=== PATIENT | female | born 1940 | race Caucasian/White ===

== ENCOUNTER 2019-12-25 17:35 | Emergency (ER) | payer MEDICARE, SELFPAY ==
[2019-12-25] VITALS (14 sets, daily range): BP systolic 139–166; BP diastolic 91–117; PULSE 86–111; RESP 15–25; TEMP 36.4; O2SAT 97
--- NOTE | 2019-12-25 18:17 | PC.NURSE ---
Pt states she has blood in the toilet but is unsure if it is from vagina or rectal area. Pt states she takes xarelto and does not know if that is causing the bleeding. Pt sister had bleeding issues after being on xarelto and had to be taken off medications.
[2019-12-25 18:40] LABS: Basophils Absolute Auto 0.1 K/mm3 (0.0-0.1); Basophils Percent Auto 0.6 % (0.2-1.2); Eosinophils Absolute Auto 0.1 K/mm3 (0-0.3); Eosinophils Percent Auto 1.3 % (0-4.4); Hematocrit 38.5 % (37.0-47.0); Hemoglobin 12.7 g/dL (12.0-15.0); Immature Granulocyte Absolute 0.04 K/mm3 (0.00-0.031); Immature Granulocyte Percent A 0.5 % (0-0.5); Lymphocytes Absolute Auto 2.44 K/mm3 (0.9-3.2); Lymphocytes Percent Auto 30.7 % (18.3-44.2); Mean Corpuscular Volume 90.8 fl (80-100); Mean Platelet Volume 10.9 fl (7.4-10.4); Monocytes Absolute Auto 0.8 K/mm3 (0.1-0.6); Monocytes Percent Auto 10.1 % (2.6-8.5); Neutrophils Absolute Auto 4.5 K/mm3 (1.3-6.7); Neutrophils Percent Auto 56.8 % (45.5-73.1); Platelet Count Result 140 k/mm3 (150-375); Red Blood Count 4.24 M/mm3 (4.2-5.4); Red Cell Distribution Width 13.7 % (11.5-14.5)
[2019-12-25 18:48] LABS: INR 2.2; Prothrombin Time 23.7 Seconds (11.1-14.7)
[2019-12-25 18:49] LABS: Partial Thromboplastin Time 26.9 SECONDS (22.3-36.8)
[2019-12-25 18:50] LABS: Alanine Aminotransferase 16 U/L (4-35); Albumin Level 3.8 g/dL (3.5-5.1); Alkaline Phosphatase 65 U/L (38-126); Aspartate Amino Transferase 35 U/L (14-36); Bilirubin,Total 1.1 mg/dL (0.2-1.3); Blood Urea Nitrogen 20 mg/dL (7-17); Calcium 8.9 mg/dL (8.4-10.2); Carbon Dioxide 24 mmol/L (22-30); Chloride 107 mmol/L (98-107); Estimated CRCL calculation 36 ml/min; Estimated Glomerular Filt Rate 53; Glucose 84 mg/dL (65-105); Potassium 3.7 mmol/L (3.4-5.0); Sodium 137 mmol/L (137-145)
--- NOTE | 2019-12-25 19:28 | ED.FEMALEGU ---
HPI - Female Genitourinary General Chief complaint: Urogenital-Female Stated complaint: rectal bleeding Time Seen by Provider: 12/25/19 19:03 History of Present Illness HPI Narrative: Blood in her urine for the past few days. Associated with urinary frequency. She is on xarelto. No other bleeding or bruising. No fever. Related Data Allergies Allergy/AdvReac Type Severity Reaction Status Date / Time Penicillins Allergy Unknown Verified 04/09/14 14:39 Review of Systems Review of Systems: All systems reviewed & are unremarkable except as noted in HPI and below Constitutional: Constitutional: Denies chills ENT: Denies dizziness Cardiovascular: Cardiovascular: Denies chest pain Respiratory: Respiratory: Denies dyspnea Gastrointestinal: Gastrointestinal: Denies nausea and Denies vomiting Genitourinary: Genitourinary: Reports hematuria, Denies pelvic pain and Denies vaginal discharge Neurologic: Denies dizziness and Denies weakness [facility] Past Medical History Medical History (Updated 12/26/19 @ 02:55 by Cameron Mendez MD) Atrial fibrillation CVA (cerebral vascular accident) Family History Family History Other Family history of heart disease in male family member before age 55 Social History Social History Smoking status: Never smoker Alcohol intake: never Exam Const: General: healthy appearing, no acute distress and alert Orientation/consciousness: patient oriented x3 HENMT: Head: normal to inspection Resp: Effort & Inspection: normal respiratory effort Auscultation: clear to auscultation bilaterally Cardio: Rate: regular rate Rhythm: abnormal rhythm irregularly irregular GI: GI Palp: Yes Soft to palpation and No Tenderness to palpation present (GI) Skin: General skin exam: normal color Rashes: no rashes Neuro: General: patient oriented x3, moves all extremities and CN's II-XI intact bilaterally Speech: normal speech Extrem: General: normal to inspection Course Vital Signs Vital signs: Vital Signs Temperature 36.4 C 12/25/19 17:57 Pulse Rate 92 12/25/19 17:57 Respiratory Rate 18 12/25/19 17:57 Blood Pressure 152/103 H 12/25/19 17:57 Pulse Oximetry 97 12/25/19 17:57 Temperature 36.4 C 12/25/19 17:57 Pulse Rate 111 H 12/25/19 20:06 Respiratory Rate 24 H 12/25/19 20:06 Blood Pressure 139/94 H 12/25/19 19:51 Pulse Oximetry 97 12/25/19 17:57 MDM - Female Genitourinary MDM Narrative Medical decision making narrative: only a few RBCs in urine. No sign of infection. Likely related to xarelto. Differential Diagnosis Differential diagnosis: Likely urinary tract infection and cystitis Medical Records Attestation: I reviewed the patient's medical records. Lab Data Attestation: I reviewed the patient's lab results. Result diagrams: 12/25/19 18:33 12/25/19 18:33 Labs: Lab Results 12/25/19 12/25/19 12/25/19 Range/Units 18:33 18:33 18:33 WBC 8.0 (4.5-10.0) K/mm3 RBC 4.24 (4.2-5.4) M/mm3 Hgb 12.7 (12.0-15.0) g/dL Hct 38.5 (37.0-47.0) % MCV 90.8 (80-100) fl MCH 30.0 (26-34) pg MCHC 33.0 (32-36) g/dl RDW 13.7 (11.5-14.5) % Plt Count 140 L (150-375) k/mm3 MPV 10.9 H (7.4-10.4) fl Immature Gran % (Auto) 0.5 (0-0.5) % Neut % (Auto) 56.8 (45.5-73.1) % Lymph % (Auto) 30.7 (18.3-44.2) % Wayne % (Auto) 10.1 H (2.6-8.5) % Eos % (Auto) 1.3 (0-4.4) % Baso % (Auto) 0.6 (0.2-1.2) % Lymph # (Auto) 2.44 (0.9-3.2) K/mm3 Wayne # (Auto) 0.8 H (0.1-0.6) K/mm3 Eos # (Auto) 0.1 (0-0.3) K/mm3 Baso # (Auto) 0.1 (0.0-0.1) K/mm3 Abs Immat Gran (auto) 0.04 H (0.00-0.031) K/mm3 Absolute Neuts (auto) 4.5 (1.3-6.7) K/mm3 Absolute Nucleated RBC 0.0 (0.0-0.012) K/mm3 Nucleated RBC % 0.0 (0.0-0.2) % % Immature Plt F
[2019-12-25 20:20] LABS: Add Urine Microscopic? YES; Appearance Urine Cloudy (Clear); Bacteria Urine Trace /hpf; Bilirubin Urine Negative (Negative); Blood Urine 2+ (Negative); Color Urine Yellow (Yellow); Glucose Urine UA Negative (Negative); Ketones Urine Negative (Negative); Leukocyte Esterase Ur Negative LEU/UL (Negative); Mucus Urine Rare /lpf; Nitrate Urine Negative (Negative); Protein Urine Negative (Negative); Specific Grav Ur 1.014 (1.001-1.035); Squamous Epithelial Cell Urine Few /hpf (Few); Urobilinogen Urine Negative mg/dL (<2.0); WBC Urine 0-3 /hpf
== END 2019-12-25 22:04 | disposition home or self-care (01) ==
PROVIDERS: Physician Assistant; Emergency Provider Emergency Medicine; PCP Family Medicine
DX: R31.29 Other microscopic hematuria (principal); I48.91 Unspecified atrial fibrillation; Z86.73 Personal history of transient ischemic attack (TIA), and cerebral infarction without residual deficits
CPT/HCPCS: 36415; 51701; 80053; 81001; 85025; 85055; 85610; 85730; 86850; 86900; 86901; 99283

== ENCOUNTER 2020-10-11 09:06 | Outpatient (CLI) | payer MEDICARE, SELFPAY | END 2020-10-11 09:07 | disposition home or self-care (01) | LOC: ANHCOVIDVC 09:06 | PROVIDERS: PCP Family Medicine | DX: Z23 Encounter for immunization (principal) | CPT/HCPCS: 0001A; 91300 ==

== ENCOUNTER 2020-11-01 09:04 | Outpatient (CLI) | payer MEDICARE, SELFPAY | END 2020-11-01 09:05 | disposition home or self-care (01) | LOC: ANHCOVIDVC 09:04 | PROVIDERS: PCP Family Medicine | DX: Z23 Encounter for immunization (principal) | CPT/HCPCS: 0002A; 91300 ==

== ENCOUNTER 2021-09-06 16:32 | Inpatient (IN) | payer MEDICARE, SELFPAY ==
[2021-09-06] VITALS (49 sets, daily range): BP systolic 68–146; BP diastolic 45–94; PULSE 75–109; RESP 13–28; TEMP 36.8–38.1; O2SAT 92–100
--- NOTE | ~2021-09-06 | CT_ITS ---
EXAMINATION: CT abdomen pelvis w con EXAM DATE: 09/06/2021 19:13 INDICATION: Altered mental status. Nausea and vomiting. TECHNIQUE: Spiral CT of the abdomen and pelvis was performed following intravenous injection of 100 m L Omnipaque 350. Axial, coronal and sagittal images of the abdomen and pelvis were reviewed. The do se-length product (DLP) for this examination was 988.50 mGy-cm. The exposure was tailored according to patient size (auto mA exposure control), and iterative reconstruction (ASIR) was used as additiona l dose reduction technique. There is no prior study for comparison. FINDINGS: The liver, spleen, adrenal glands and pancreas are unremarkable. Gallbladder not identifie d, patient likely has had cholecystectomy. Portal and splenic veins are patent. Kidneys enhance sym metrically. There is no hydronephrosis. The uterus is unremarkable. The bladder is unremarkable. There is no retroperitoneal or pelvic lymphadenopathy. The appendix is normal. Small gastroesophageal hiatal hernia. There is expected amount of colonic s tool. No free intraperitoneal gas. There is cardiomegaly. The lung bases are unremarkable. Mild to moderate compression fracture superior endplate of L3. Probably chronic. IMPRESSION: 1. No acute intra-abdominal findings. 2. Small gastroesophageal hiatal hernia. 3. Cardiomegaly. Reviewed, dictated and finalized at location G. TECHNICIAN
--- NOTE | ~2021-09-06 | XR_ITS ---
XR chest 1V portable 09/07/2021 11:03 Indication: New wheezing and fever Procedure: AP portable chest Comparison: Comparison to multiple prior studies sequentially, with oldest reviewed study dated 06/02. Findings: Cardiomegaly. No focal air space disease, pulmonary edema, pleural effusion or suspected pn eumothorax. No acute osseous abnormality. There is curvilinear ossification superior to the humeral h ead on the right, likely calcific tendinopathy. Impression: 1: No acute cardiopulmonary disease. Reviewed, dictated and finalized at location A. AGE WINDING MACHINE OPERATOR Impression: 1: No acute cardiopulmonary disease.
--- NOTE | ~2021-09-06 | XR_ITS ---
MODIFIED ESOPHAGRAM HISTORY: Dementia. Abnormal lung exam. Fever. TECHNIQUE: Modified barium esophagram was performed on 09/08/2021. I administered fluoroscopy and perfo rmed the exam with speech pathologist. Patient was seated for lateral fluoroscopic imaging for inges tion of thin liquids, pudding, solids and quantified amounts, followed by thin liquids in uncontrolle d amounts. This was recorded on tape. A single fluoroscopic spot image was also recorded. The DAP for this procedure was 2.217 Gycm2. The amount of fluoroscopy time used during this procedure was 2.4 mi nutes. FINDINGS: Oral stage: Adequate function. Pharyngeal stage: Flash laryngeal penetration with thin liquids without aspiration. Cervical/esophageal stage: Adequate function. IMPRESSION: Flash laryngeal penetration with thin liquids without aspiration. Please correlate with speech pathologist findings and specific feeding recommendations. Reviewed, dictated and finalized at location A. [employer] IMPRESSION: Flash laryngeal penetration with thin liquids without aspiration. Please correlate with speech pathologist findings and specific feeding recommen dations.
--- NOTE | ~2021-09-06 | CT_ITS ---
EXAMINATION: CT brain wo con EXAM DATE: 09/06/2021 19:13 INDICATION: Altered mental status. TECHNIQUE: Spiral CT of the head was performed without contrast. Axial, coronal and sagittal images were reviewed. The dose-length product (DLP) for this examination was 988.50 mGy-cm. The exposure w as tailored according to patient size, and iterative reconstruction (ASIR) was used as additional dos e reduction technique. Comparison is made to prior examination from 12/07/2018. FINDINGS: There is no acute intraparenchymal hemorrhage. No evidence of intraparenchymal brain mass lesion. No evidence of acute infarction. Please note that initial head CT has limited sensitivity f or small or acute infarctions. There is moderate periventricular and subcortical hypodensity, nonspec ific but probably related to small vessel ischemic disease. There is moderate prominence of the sul ci and ventricles related to cerebral atrophy. There is intracranial carotid arteriosclerosis. The re are no extra-axial collections. There is no mass effect or midline shift. The orbits are unremar kable. Soft tissue is unremarkable. The visualized sinuses and mastoid air cells are well aerated. IMPRESSION: 1. No acute intracranial findings. 2. Chronic age related findings. Reviewed, dictated and finalized at location G. WORKER
--- NOTE | ~2021-09-06 | XR_ITS ---
EXAMINATION: XR chest 1V portable DATE: 09/10/2021 09:03 INDICATION: Shortness of breath and wheezing TECHNIQUE: frontal view of the chest was obtained. COMPARISON: Chest radiograph dated 09/07/2021 FINDINGS: Subtle opacities in the bilateral lower lung zones. No pneumothorax or definitive pleural effusion. C ardiomegaly. IMPRESSION: 1. Subtle opacities in the lower lung zones which could represent atelectasis, mild pulmonary edema o r pneumonia. 2. Cardiomegaly. Reviewed, dictated and finalized at location A. EED HARVESTER IMPRESSION: 1. Subtle opacities in the lower lung zones which could represent atelectasis, mild pulmonary edema or pneumonia. 2. Cardiomegaly.
--- NOTE | ~2021-09-06 | MR_ITS ---
EXAMINATION: MR brain/brain stem wo con EXAM DATE: 09/10/2021 12:24 INDICATION: confusion h/o cva . TECHNIQUE: Magnetic resonance imaging (MRI) of the brain/brain stem obtained without contrast. Sagitt al T1, axial diffusion, gradient echo (T2*), T1, T2, FLAIR sequences obtained. Comparison is made to prior examination from 12/08/2018. FINDINGS: There are no areas of restricted diffusion to suggest acute infarction. There is no acute hemorrhage seen on the T2*, a hemosiderin sensitive sequence. No intraparenchymal brain mass lesion. There is moderate periventricular and subcortical T2/FLAIR signal hyperintensity, nonspecific but pr obably related to small vessel ischemic disease (microangiopathy). There is moderate prominence of the sulci and ventricles related to cerebral atrophy. There are no extra-axial collections. Flow v oids are seen in the cerebral arteries on the T2-weighted sequences consistent with their expected pa tency. The orbits are unremarkable. Soft tissue is unremarkable. IMPRESSION: 1. No acute intracranial findings. 2. Chronic age related findings. Reviewed, dictated and finalized at location B. DATA ENGINEER
--- NOTE | ~2021-09-06 | XR_ITS ---
EXAMINATION: XR chest 1V portable EXAM DATE: 09/06/2021 20:46 INDICATION: AMS, wheeze, covid pending, HX CVA, HX AFIB TECHNIQUE: Portable AP frontal chest x-ray was obtained. Comparison is made to prior examination from 12/07/2018. FINDINGS: The lungs are clear. There are no pleural effusions. Mild cardiomegaly. There is no pneu mothorax suspected. The bones are osteopenic. There are bony degenerative changes. IMPRESSION: Mild cardiomegaly. Reviewed, dictated and finalized at location G. L OPERATOR IMPRESSION: Mild cardiomegaly.
--- NOTE | 2021-09-06 17:43 | ECG_ITS ---
Measurements Intervals [place] Rate: 114 P: MA: 0 QRS: 54 QRSD: 84 T: -40 QT: 354 QTc: 489 Interpretive Statements ATRIAL FIBRILLATION WITH RAPID VENTRICULAR RESPONSE NONSPECIFIC ST & T-WAVE ABNORMALITY- ANTEROLAT/INF LEADS BASELINE ARTIFACT- I, II, III, AVR, AVL, AVF ABNORMAL ECG Electronically Signed On 09-06-2021 18:15:23 CHECK WRITING MACHINE OPERATOR by Juvencio Hackett D.O.
[2021-09-06] MEDS: ONDANSETRON INJ 4 MG/2 ML VIAL IV PUSH (17:56)
[2021-09-06] MEDS: SODIUM CHLORIDE 0.9% IV 1,000 ML 999 ML IV CONT ×2 (17:56→22:36)
[2021-09-06 18:03] LABS: Basophils Percent Auto 0.3 % (0.2-1.2); Hematocrit 43.9 % (37.0-47.0); Hemoglobin 14.1 g/dL (12.0-15.0); Immature Granulocyte Absolute 0.08 K/mm3 (0.00-0.031); Immature Granulocyte Percent A 0.9 % (0-0.5); Lymphocytes Absolute Auto 0.31 K/mm3 (0.9-3.2); Lymphocytes Percent Auto 3.4 % (18.3-44.2); Mean Corpuscular HGB Conc 32.1 g/dl (32-36); Mean Corpuscular Hemoglobin 31.1 pg (26-34); Mean Corpuscular Volume 96.7 fl (80-100); Mean Platelet Volume 10.8 fl (7.4-10.4); Monocytes Absolute Auto 0.8 K/mm3 (0.1-0.6); Monocytes Percent Auto 8.6 % (2.6-8.5); Neutrophils Percent Auto 86.8 % (45.5-73.1); Platelet Count Result 124 k/mm3 (150-375); Red Blood Count 4.54 M/mm3 (4.2-5.4); Red Cell Distribution Width 13.7 % (11.5-14.5); White Blood Count 9.2 K/mm3 (4.5-10.0)
[2021-09-06 18:35] LABS: Add Urine Microscopic? YES; Appearance Urine Clear (Clear); Bilirubin Urine Negative (Negative); Blood Urine 3+ (Negative); Color Urine Yellow (Yellow); Glucose Urine UA Negative (Negative); Ketones Urine Negative (Negative); Leukocyte Esterase Ur Negative LEU/UL (Negative); Mucus Urine Rare /lpf; Nitrate Urine Negative (Negative); Protein Urine Negative (Negative); RBC Urine 21-50 /hpf (0-2); Squamous Epithelial Cell Urine Occasional /hpf (Few); Urobilinogen Urine Negative mg/dL (<2.0); WBC Urine 0-3 /hpf
[2021-09-06 18:36] LABS: Alanine Aminotransferase 27 U/L (4-35); Albumin Level 3.8 g/dL (3.5-5.1); Alkaline Phosphatase 81 U/L (38-126); Anion Gap 3 mmol/L (8-16); Aspartate Amino Transferase 38 U/L (14-36); Bilirubin,Total 1.6 mg/dL (0.2-1.3); Blood Urea Nitrogen 19 mg/dL (7-17); Calcium 8.9 mg/dL (8.4-10.2); Carbon Dioxide 30 mmol/L (22-30); Chloride 104 mmol/L (98-107); Estimated CRCL calculation 47 ml/min; Estimated Glomerular Filt Rate 60; Glucose 131 mg/dL (65-110); Lipase 40 U/L (23-300); Potassium 4.2 mmol/L (3.4-5.0); Sodium 137 mmol/L (137-145)
--- NOTE | 2021-09-06 18:38 | PC.NURSE ---
Talked to Mey in lab at 18:38 to add on Urine Drug Screen to urine cup in lab.
--- NOTE | 2021-09-06 18:41 | ED.NAVMDI ---
HPI - Nausea/Vomiting/Diarrhea General Chief complaint: Nausea/Vomiting/Diarrhea <Jeremy Mercedes MD - Last Filed: 09/06/21 19:19> Stated complaint: altered mental status <Jeremy Mercedes MD - Last Filed: 09/06/21 19:19> Time Seen by Provider: 09/06/21 17:33 <Jeremy Mercedes MD - Last Filed: 09/06/21 19:19> Source: family, EMS, RN notes reviewed and old records reviewed <Jeremy Mercedes MD - Last Filed: 09/06/21 19:19> History of Present Illness HPI Narrative: Patient presents for confusion. Patient was in her usual state of health yesterday at her baseline dementia usually is alert to her self and able to care for self. Patient has relatives in the area sickly her aunt who checks in on her from time to time. This morning and noted the patient was more confused than usual her confusion progressed throughout the day and she also had multiple episodes of vomiting is not been able to keep down her medications. Given persistence of her symptoms EMS was called and patient was brought to the ER for evaluation. <Jeremy Mercedes MD - Last Filed: 09/06/21 19:19> Related Data Home medications: Home Medications Medication Instructions Recorded Confirmed atorvastatin 20 mg 09/06/21 carvedilol 3.125 mg 09/06/21 furosemide 20 mg 09/06/21 levothyroxine 50 mcg 09/06/21 losartan 25 mg 09/06/21 memantine 5 mg 09/06/21 rivaroxaban [Xarelto] 15 mg 09/06/21 <Jeremy Mercedes MD - Last Filed: 09/06/21 19:19> Allergies/Adverse reactions: Allergies Allergy/AdvReac Type Severity Reaction Status Date / Time Penicillins Allergy Unknown Unknown Verified 09/06/21 17:40 <Jeremy Mercedes MD - Last Filed: 09/06/21 19:19> Review of Systems Review of Systems: CONSTITUTIONAL: Denies fever, chills, or sweats. EYES: Denies visual changes, redness, or discharge. ENT: Denies rhinorrhea, congestion, sore throat, or otalgia. CARDIOVASCULAR: Denies chest pain, palpitations, or edema. RESPIRATORY: Denies cough or dyspnea. GASTROINTESTINAL: Denies abdominal pain, nausea, vomiting, or diarrhea. GENITOURINARY: Denies dysuria or hematuria. SKIN: Denies rash or itching. MUSCULOSKELETAL: Denies back pain, joint pain, or myalgia. NEUROLOGIC: Denies headache, numbness, dizziness, or weakness. PSYCHIATRIC: Denies anxiety or depression. <Jeremy Mercedes MD - Last Filed: 09/06/21 19:19> All systems reviewed & are unremarkable except as noted in HPI and below <Jeremy Mercedes MD - Last Filed: 09/06/21 19:19> ROS unobtainable: Yes unobtainable due to mental status (Patient only alert to herself ROS likely limited) <Jeremy Mercedes MD - Last Filed: 09/06/21 19:19> PMFSH Past Medical History Medical History: Medical History Atrial fibrillation CVA (cerebral vascular accident) <Jeremy Mercedes MD - Last Filed: 09/06/21 19:19> Family History Family History: Family History Other Family history of heart disease in male family member before age 55 <Jeremy Mercedes MD - Last Filed: 09/06/21 19:19> Social History Social History: Social History Smoking status: Never smoker Alcohol intake: never <Jeremy Mercedes MD - Last Filed: 09/06/21 19:19> Exam Narrative: GENERAL: Well-appearing, well-nourished, and in no acute distress. HEAD: Normocephalic, atraumatic. EYES: PERRLA and EOMI. ENT: Nares clear, no rhinorrhea or epistaxis. Mucous membranes moist. NECK: Supple. No masses. No JVD CHEST: Clear to auscultation. No respiratory distress. No wheezes rales or rhonchi HEART: Regular rate and rhythm. No murmur heard. Normal peripheral pulses. ABDOMEN: Soft, nontender, nondistended, normal active bowel sounds. EXTREMITIES: Normal range of motion. No edema. SKIN: Warm, dry, no rash. NEURO: No focal deficits.
--- NOTE | 2021-09-06 18:46 | PC.NURSE ---
Called pt niece and she was able to give me some additional information. She states that pt still lives at home alone and she states that she was at her normal yesterday. She states that she normally knows her name and where she is. She states this morning that she was very weak and didn't want to eat. she states that she vomited and slept alot today. She didnt take any medications this morning. She also states that she as much more confused than normal
--- NOTE | 2021-09-06 19:03 | PC.NURSE ---
Pt Tyra reis,
[2021-09-06 19:10] LABS: Amphetamine Screen Urine Negative (Negative); Barbiturate Screen Urine Negative (Negative); Benzodiazepines Screen Urine Negative (Negative); Cannabinoid Screen Urine Negative (Negative); Cocaine Screen Urine Negative (Negative); Methadone Screen Urine Negative (Negative); Opiate Screen Urine Negative (Negative); Phencyclidine Screen Urine Negative (Negative)
[2021-09-06 19:58] LABS: Lactic Acid Reflex 1.2 mmol/L (0.7-2.1)
--- NOTE | 2021-09-06 20:19 | PC.NURSE ---
This RN spoke with granddaughter and POA, Sowmya Tijerina [phone]. This RN provided update on pt status.
--- NOTE | 2021-09-06 20:37 | PC.NURSE ---
Pt found confused upon initial assessment, she does not know her name, pt does not know birthday, she is unable to understand that she is in a hospital and does not answer back when RN asks where she is, pt only smiles when asks questions and forms unintelligible short sentences. Pt denies pain. Wheezing heard throughout lung lott, she is satting between 93-97% on RA, pt does not wear oxygen at home.
[2021-09-06] MEDS: ALBUTEROL SULFATE NEB 2.5 MG/0.5 ML INH 5 MG INHALATION (20:52)
[2021-09-06 21:11] LABS: Base Excess ABG -2.2 mEq/l (+/-2.0); Fractional Inspired Oxygen 21 %; HCO3 ABG 21.9 mEq/l (22.0-26.0); Oxygen Content ABG 18.8 %vol (16.0-22.0); Oxygen Saturation ABG 99.7 % (95.0-100.0); Oxyhemoglobin 97.9 % THb (90.0-100.0); PCO2 ABG 35.5 mmHg (35.0-45.0); PO2 ABG 308.6 mmHg (80.0-100.0); Total Hemoglobin 13.1 g/dL (12.0-18.0); pH ABG 7.408 (7.350-7.450)
[2021-09-06 21:12] LABS: Modified Allen's Test Pass; Site Drawn RIGHT RADIAL
[2021-09-06 21:13] LABS: Device ROOM AIR
[2021-09-06 21:15] LABS: SARS-CoV-2 RNA PCR Negative
--- NOTE | 2021-09-06 21:37 | PM.IMHP ---
H&P: HPI History of Present Illness Date/Time: 09/06/21 21:37 Chief Complaint: Altered mental status Narrative: This is an 80-year-old female with past medical history significant for systolic and diastolic heart failure, atrial fibrillation rate controlled anticoagulated, dementia, hypertension, patient is usually alert awake oriented x2 as per medical records. Today she was brought for evaluation to the emergency room after she was noted to be more confused than usual and had a bout of nausea and vomiting patient had been also on somnolent and sleeping more than she is used to. At the time of my visit patient was unable to give me any history when asked where she was at she said that she knew where she was at however could not tell me exactly. Family has also concerns the patient my not be able to care for herself from now on. Preliminary workup has been essentially nonrevealing. Patient has been admitted for further evaluation management and treatment. Review of Systems Review of Systems: ROS unobtainable: Yes unobtainable due to medical condition (Dementia) [facility] Past Medical History Medical History (Updated 09/07/21 @ 01:36 by Josefa Camarillo MD) Atrial fibrillation CVA (cerebral vascular accident) Family History Family History Other Family history of heart disease in male family member before age 55 Social History Social History Smoking status: Never smoker Alcohol intake: never Substance use: never Spiritual care concerns: No Meds Home Medications and Allergies Home Medications Medication Instructions Recorded Confirmed Type atorvastatin 20 mg 09/06/21 History carvedilol 3.125 mg 09/06/21 History furosemide 20 mg 09/06/21 History levothyroxine 50 mcg 09/06/21 History losartan 25 mg 09/06/21 History memantine 5 mg 09/06/21 History rivaroxaban [Xarelto] 15 mg 09/06/21 History citalopram 10 mg PO DAILY 09/07/21 09/07/21 History ergocalciferol (vitamin D2) 1,250 mcg PO WEEKLY 09/07/21 09/07/21 History Allergies Allergy/AdvReac Type Severity Reaction Status Date / Time Penicillins Allergy Unknown Unknown Verified 02/05/22 17:40 Vital Signs Vital Signs - 24 hr 09/06/21 16:33 09/06/21 16:47 09/06/21 17:02 Temperature 98.2 F Pulse Rate 108 H 98 98 Respiratory Rate 18 23 H 21 H Blood Pressure 133/88 126/94 H 113/65 Pulse Oximetry 98 98 98 09/06/21 17:16 09/06/21 17:46 09/06/21 18:16 Temperature Pulse Rate 99 96 103 H Respiratory Rate 22 H 28 H 17 Blood Pressure 117/68 126/67 112/70 Pulse Oximetry 98 97 98 09/06/21 18:31 09/06/21 19:20 09/06/21 20:52 Temperature 100.6 F H Pulse Rate 94 96 93 Respiratory Rate 25 H 22 H 27 H Blood Pressure 110/74 146/79 H Pulse Oximetry 97 97 09/06/21 21:26 Temperature 99.0 F Pulse Rate Respiratory Rate Blood Pressure Pulse Oximetry Exam Narrative: Patient is laying in [facility] Const: General: comfortable, no acute distress, well developed, well groomed and other (Sleeping, well-appearing.) Nutritional Appearance: overweight Orientation/consciousness: oriented to person and Other orientation findings (Somnolent) Limitations: altered mental status HENMT: Head: normal to inspection, normocephalic and atraumatic Ears: hearing grossly normal bilaterally General nose exam: Normal external nose present Face and sinus: normal facial exam Mouth: Yes dry mucous membranes Eyes: General: appearance normal, both eyes and all related structures Alignment and Position: alignment normal Sclera: sclerae normal Pupils: Equal, round and reactive pupils present EOM: EOMs intact bilaterally Neck: Neck: normal visual inspection, full ROM, no lymphadenopathy, supple and no JVD Thyroid: thyroid normal Lymphatic: no lymphadenopathy noted Resp: Effort & Inspection: normal respiratory effort and able to speak in com
[2021-09-06] MEDS: SODIUM CHLORIDE 0.9% IV 1,000 ML 250 ML (23:29)
--- NOTE | 2021-09-06 23:37 | PC.NURSE ---
ED MD [place] gave this RN verbal orders to change NS infusion of 250 ml/hr to 1 liter bolus @ 999 ml/hr.
--- NOTE | 2021-09-06 23:52 | PC.NURSE ---
Pt continues to be monitored while in the ED due to fluctuant BP measurements.
[2021-09-07] VITALS (18 sets, daily range): BP systolic 94–133; BP diastolic 42–90; PULSE 70–109; RESP 16–24; TEMP 36.1–37.2; O2SAT 90–100
--- NOTE | 2021-09-07 00:10 | PC.NURSE ---
Manual BP obtained by RN 100/54, notified.
--- NOTE | 2021-09-07 00:17 | PC.NURSE ---
Bladder scanned by this RN, approximately 220 ml of urine observed, pt has a dry diaper that she arrived in. notified.
--- NOTE | 2021-09-07 00:45 | ADMGEN ---
This patient, Leslie Hodges, was admitted to Medical Room 256-01. Patient/family oriented to hospital policies and general routines including ID bracelet, bed and alarms, visiting hours, pain management, procedures, bathroom and other care routines, personal items, smoking policy, room service/diet, and visiting hours. Information on how to activate the Rapid Response Team has been discussed. Patient/Family are encouraged to report perceived risks to care and to ask questions if they do not understand what they are told or what they should do.
[2021-09-07 08:04] LABS: Hemoglobin 11.7 g/dL (12.0-15.0); Mean Corpuscular HGB Conc 31.6 g/dl (32-36); Mean Corpuscular Hemoglobin 31.4 pg (26-34); Mean Corpuscular Volume 99.2 fl (80-100); Mean Platelet Volume 10.3 fl (7.4-10.4); Platelet Count Result 94 k/mm3 (150-375); Red Blood Count 3.73 M/mm3 (4.2-5.4); Red Cell Distribution Width 14.1 % (11.5-14.5); White Blood Count 4.6 K/mm3 (4.5-10.0)
[2021-09-07 08:19] LABS: Hemoglobin A1C 5.2 % (<5.7); Magnesium 1.7 mg/dL (1.6-2.3); Phosphorus 3.6 mg/dL (2.5-4.5)
[2021-09-07 08:20] LABS: Alanine Aminotransferase 22 U/L (4-35); Alkaline Phosphatase 63 U/L (38-126); Anion Gap 2 mmol/L (8-16); Aspartate Amino Transferase 31 U/L (14-36); Blood Urea Nitrogen 17 mg/dL (7-17); CRP 4.4 mg/dL (<1.0); Calcium 7.8 mg/dL (8.4-10.2); Carbon Dioxide 25 mmol/L (22-30); Chloride 111 mmol/L (98-107); Estimated CRCL calculation 52 ml/min; Estimated Glomerular Filt Rate > 60; Glucose 86 mg/dL (65-110); Potassium 3.6 mmol/L (3.4-5.0); Sodium 138 mmol/L (137-145)
[2021-09-07] MEDS: ATORVASTATIN 20 MG TABLET PO (08:50)
[2021-09-07] MEDS: LEVOTHYROXINE SODIUM 50 MCG TABLET PO (08:50)
[2021-09-07] MEDS: RIVAROXABAN 15 MG TABLET PO (08:50)
[2021-09-07] MEDS: CITALOPRAM HYDROBROMIDE 10 MG TABLET PO (08:50)
[2021-09-07] MEDS: MEMANTINE 5 MG TABLET PO ×2 (08:50→16:28)
[2021-09-07 09:11] LABS: Iron 24 ug/dL (37-170)
[2021-09-07 09:21] LABS: Percent Iron Saturation 12 % (20-50)
[2021-09-07 09:22] LABS: Folic Acid 10.3 ng/mL (2.76->20)
--- NOTE | 2021-09-07 10:45 | PM.IMPN ---
Progress Note: A&P Assessment and Plan (1) Altered mental status: Qualifiers: Altered mental status type: unspecified Qualified Code(s): R41.82 - Altered mental status, unspecified Code(s): R41.82 - Altered mental status, unspecified Status: Acute Assessment and Plan: Unclear etiology Meds reviewed CXR w/o inflitrates or effusion CT head negative for acute findings CT abdomen and pelvis negative for acute findings Given her low-grade temperature, pancytopenia, and lack of focal findings she may simply have a viral syndrome superimposed on chronic dementia. Given her pulmonary findings it is possible that she is aspirating intermittently causing her fluctuating lung exam findings and low-grade temperatures. CRP is elevated but w/o findings of GCA or PMR on exam Viral meningitis is clinically unlikely. Symptomatic care PT and OT Speech therapy for modified barium swallow (2) Adult failure to thrive: Code(s): R62.7 - Adult failure to thrive Status: Acute Assessment and Plan: Her underlying disease seems to be progressing PT and OT consulted Care coordination working on longterm placement (3) Dementia: Qualifiers: Dementia type: unspecified type Dementia behavioral disturbance: without behavioral disturbance Qualified Code(s): F03.90 - Unspecified dementia without behavioral disturbance Code(s): F03.90 - Unspecified dementia without behavioral disturbance Status: Acute Assessment and Plan: Continue Namenda (4) Atrial fibrillation: Qualifiers: Atrial fibrillation type: unspecified Qualified Code(s): I48.91 - Unspecified atrial fibrillation Code(s): I48.91 - Unspecified atrial fibrillation Status: Acute Assessment and Plan: Rate controlled and anticoagulated (5) CVA (cerebral vascular accident): Qualifiers: CVA mechanism: unspecified Qualified Code(s): I63.9 - Cerebral infarction, unspecified Code(s): I63.9 - Cerebral infarction, unspecified Status: Acute Assessment and Plan: Chronic Continue statin Subjective Date/time seen: 09/07/21 10:45 Interval history: Admitted 09/05 for increasing confusion and inability care for self at home. Received a little over 2 L of fluid in the emergency department overnight. Her chest x-rays CT abdomen pelvis and CT brain were all unremarkable. Urine did not show evidence for infection. She did have mild pancytopenia. She did have a maximal temperature of 100.6? after admission to floor from the emergency department. 2/5 visit: Nursing staff notes coarse breath sounds but patient denies dyspnea chest pain palpitations or dizziness. She denied abdominal pain dysuria or hematuria or constipation or diarrhea. Her history is dubious due to her underlying dementia. Review of Systems Review of Systems: All systems reviewed & are unremarkable except as noted in HPI and below Exam Narrative: HEENT: PERRL, sclerae nonicteric, pharyngeal mucosa pink and intact NECK: No JVD, adenopathy, or thyromegaly CHEST: Mildly tachypneic. Coarse breath sounds throughout with expiratory wheeze. No crackles. HEART: NL S1/S2, regular, no murmur ABDOMEN: BS+, soft, nontender, no mass, no bruits EXTREMITIES: No cyanosis, edema, or clubbing NEUROLOGIC: CN intact and symmetric to inspection. MUSCULOSKELETAL: Tone and strength symmetric. PSYCH: Alert. Oriented to person only. Objective Data Vital Signs Vital Signs: Vital Signs - 24 hr 09/06/21 16:33 09/06/21 16:47 09/06/21 17:02 Temperature 98.2 F Pulse Rate 108 H 98 98 Respiratory Rate 18 23 H 21 H Blood Pressure 133/88 126/94 H 113/65 Pulse Oximetry 98 98 98 09/06/21 17:16 09/06/21 17:46 09/06/21 18:16 Temperature Pulse Rate 99 96 103 H Respiratory Rate 22 H 28 H 17 Blood Pressure 117/68 126/67 112/70 Pulse Oximetry 98 97 98 09/06/21 18:31 09/06/21 19:15 09/06/21 19:19
[2021-09-07] MEDS: ALBUTEROL SULFATE NEB 2.5 MG/0.5 ML INH INHALATION (16:38)
[2021-09-07] MEDS: methylPREDNISolone SOD SUCC 125 MG VIAL 60 MG IV PUSH (21:40)
--- NOTE | 2021-09-07 23:29 | PCRCNOTE ---
Window of time for administration has passed. See next scheduled administration.
[2021-09-08] VITALS (23 sets, daily range): BP systolic 117–138; BP diastolic 64–87; PULSE 43–101; RESP 20–22; TEMP 36.1–36.5; O2SAT 95–100
--- NOTE | 2021-09-08 01:01 | PC.NURSE ---
Pt's sister called to inform this RN that pt could not speak in full sentences and had audible wheezes when speaking on the phone. This RN is aware of pt condition and informed pt's sister that the physician is aware of the wheezing per prior shift RN. Pt is able to keep O2 saturations above 92% on room air and is constantly removing her nasal canula.
[2021-09-08] MEDS: ALBUTEROL SULFATE NEB 2.5 MG/0.5 ML INH INHALATION ×4 (02:30→20:32)
[2021-09-08] MEDS: CITALOPRAM HYDROBROMIDE 10 MG TABLET PO (09:20)
[2021-09-08] MEDS: LEVOTHYROXINE SODIUM 50 MCG TABLET PO (09:20)
[2021-09-08] MEDS: ATORVASTATIN 20 MG TABLET PO (09:20)
[2021-09-08] MEDS: RIVAROXABAN 15 MG TABLET PO (09:21)
[2021-09-08] MEDS: MEMANTINE 5 MG TABLET PO ×2 (09:21→17:13)
--- NOTE | 2021-09-08 10:38 | PM.IMPN ---
Progress Note: A&P Assessment and Plan (1) Altered mental status: Qualifiers: Altered mental status type: unspecified Qualified Code(s): R41.82 - Altered mental status, unspecified Code(s): R41.82 - Altered mental status, unspecified Status: Acute Assessment and Plan: Unclear etiology Meds reviewed CXR w/o infiltrates or effusion CT head negative for acute findings CT abdomen and pelvis negative for acute findings Given her low-grade temperature, pancytopenia, and lack of focal findings she may simply have a viral syndrome superimposed on chronic dementia Noted with abnormal resp exam yesterday CRP is elevated but w/o findings of GCA or PMR on exam Symptomatic care PT and OT Speech therapy for modified barium swallow (2) Adult failure to thrive: Code(s): R62.7 - Adult failure to thrive Status: Acute Assessment and Plan: Her underlying disease seems to be progressing PT and OT consulted Care coordination working on [facility] placement (3) Dementia: Qualifiers: Dementia type: unspecified type Dementia behavioral disturbance: without behavioral disturbance Qualified Code(s): F03.90 - Unspecified dementia without behavioral disturbance Code(s): F03.90 - Unspecified dementia without behavioral disturbance Status: Acute Assessment and Plan: Continue Namenda (4) Atrial fibrillation: Qualifiers: Atrial fibrillation type: unspecified Qualified Code(s): I48.91 - Unspecified atrial fibrillation Code(s): I48.91 - Unspecified atrial fibrillation Status: Acute Assessment and Plan: Rate controlled and anticoagulated (5) CVA (cerebral vascular accident): Qualifiers: CVA mechanism: unspecified Qualified Code(s): I63.9 - Cerebral infarction, unspecified Code(s): I63.9 - Cerebral infarction, unspecified Status: Acute Assessment and Plan: Chronic Continue statin Subjective Date/time seen: 09/08/21 10:38 Interval history: Pt seen and evaluated; labs, vs, diagnostic results reviewed; no acute events overnight; pt denies any complaints Review of Systems Review of Systems: All systems reviewed & are unremarkable except as noted in HPI and below Exam Narrative: HEENT: EOMI, sclerae nonicteric, pharyngeal mucosa pink and intact NECK: No JVD, trachea midline RESP: Diminished breath sounds throughout. CARDIO:S1/S2, regular, no murmur ABDOMEN: BS+, soft, nontender EXTREMITIES: No cyanosis, edema, or clubbing NEUROLOGIC: AO to self PSYCH: Confused. Cooperative Objective Data Vital Signs Vital Signs: Vital Signs - 24 hr 09/07/21 12:00 09/07/21 14:00 09/07/21 16:00 Temperature 36.6 C Pulse Rate 87 87 98 Respiratory Rate 22 H Blood Pressure 133/73 Pulse Oximetry 100 09/07/21 16:38 09/07/21 18:08 09/07/21 20:00 Temperature 36.5 C Pulse Rate 88 97 92 Respiratory Rate 22 H 24 H Blood Pressure 132/82 Pulse Oximetry 93 09/07/21 22:00 09/08/21 00:00 09/08/21 02:00 Temperature 36.4 C L 36.1 C L Pulse Rate 109 H 100 94 Respiratory Rate 22 H 20 Blood Pressure 133/42 L 137/87 Pulse Oximetry 100 98 09/08/21 02:30 09/08/21 02:40 09/08/21 04:00 Temperature Pulse Rate 101 H 96 93 Respiratory Rate 22 H 20 Blood Pressure Pulse Oximetry 09/08/21 06:00 09/08/21 08:05 09/08/21 08:07 Temperature 36.1 C L Pulse Rate 89 84 Respiratory Rate 20 20 Blood Pressure 138/87 Pulse Oximetry 99 95 09/08/21 08:12 09/08/21 09:45 Temperature Pulse Rate 89 Respiratory Rate 20 Blood Pressure Pulse Oximetry 95 Intake/Output Intake/Output: Intake & Output 09/05/21 09/06/21 09/07/21 09/08/21 23:59 23:59 23:59 23:59 Intake Total 2150 520 550 Output Total 200 Balance 1950 520 550 Meds/Results Medications: Active Medications Generic Name Dose Route Start Last Admin Trade Name Freq PRN Reason Stop Dose
--- NOTE | 2021-09-08 15:30 | PCSTNOTE ---
Please refer to the Modified Barium Swallow Evaluation in the EMR.
[2021-09-09] VITALS (20 sets, daily range): BP systolic 130–142; BP diastolic 53–88; PULSE 83–107; RESP 18–20; TEMP 36.1–36.6; O2SAT 93–98
[2021-09-09] MEDS: ALBUTEROL SULFATE NEB 2.5 MG/0.5 ML INH INHALATION ×4 (01:58→21:30)
[2021-09-09 05:57] LABS: Hematocrit 35.1 % (37.0-47.0); Hemoglobin 11.4 g/dL (12.0-15.0); Immature Platelet Fraction Pct 6.6 % (0.9-11.2); Mean Corpuscular HGB Conc 32.5 g/dl (32-36); Mean Corpuscular Hemoglobin 31.8 pg (26-34); Mean Corpuscular Volume 97.8 fl (80-100); Mean Platelet Volume 11.4 fl (7.4-10.4); Platelet Count Result 106 k/mm3 (150-375); Red Blood Count 3.59 M/mm3 (4.2-5.4); Red Cell Distribution Width 13.6 % (11.5-14.5); White Blood Count 4.9 K/mm3 (4.5-10.0)
[2021-09-09 06:07] LABS: Anion Gap 2 mmol/L (8-16); Blood Urea Nitrogen 19 mg/dL (7-17); Calcium 8.7 mg/dL (8.4-10.2); Carbon Dioxide 27 mmol/L (22-30); Chloride 108 mmol/L (98-107); Estimated CRCL calculation 52 ml/min; Estimated Glomerular Filt Rate > 60; Glucose 84 mg/dL (65-110); Potassium 3.8 mmol/L (3.4-5.0); Sodium 137 mmol/L (137-145)
[2021-09-09] MEDS: LEVOTHYROXINE SODIUM 50 MCG TABLET PO (06:22)
--- NOTE | 2021-09-09 07:38 | ECG_ITS ---
Measurements Intervals E[place] Rate: 93 P: MT: 0 QRS: 70 QRSD: 84 T: -2 QT: 362 QTc: 452 Interpretive Statements ATRIAL FIBRILLATION VENTRICULAR PREMATURE COMPLEX LOW QRS VOLTAGE IN PRECORDIAL LEADS BORDERLINE ST-T WAVE ABNORMALITY- ANT/INF LEADS BASELINE ARTIFACT- V5 ABNORMAL ECG Electronically Signed On 09-09-2021 8:38:55 [employer] by Juvencio Hackett D.O.
[2021-09-09] MEDS: RIVAROXABAN 15 MG TABLET PO (08:09)
[2021-09-09] MEDS: MEMANTINE 5 MG TABLET PO ×2 (08:10→16:21)
[2021-09-09] MEDS: CITALOPRAM HYDROBROMIDE 10 MG TABLET PO (08:10)
[2021-09-09] MEDS: ATORVASTATIN 20 MG TABLET PO (08:10)
--- NOTE | 2021-09-09 15:40 | PM.IMPN ---
Progress Note: A&P Assessment and Plan (1) Dementia: Qualifiers: Dementia type: unspecified type Dementia behavioral disturbance: without behavioral disturbance Qualified Code(s): F03.90 - Unspecified dementia without behavioral disturbance Code(s): F03.90 - Unspecified dementia without behavioral disturbance Status: Acute (2) Atrial fibrillation: Qualifiers: Atrial fibrillation type: unspecified Qualified Code(s): I48.91 - Unspecified atrial fibrillation Code(s): I48.91 - Unspecified atrial fibrillation Status: Acute (3) Altered mental status: Qualifiers: Altered mental status type: unspecified Qualified Code(s): R41.82 - Altered mental status, unspecified Code(s): R41.82 - Altered mental status, unspecified Status: Acute (4) Adult failure to thrive: Code(s): R62.7 - Adult failure to thrive Status: Acute (5) History of CVA (cerebrovascular accident): Code(s): Z86.73 - Personal history of transient ischemic attack (TIA), and cerebral infarction without residual deficits Status: Acute Additional Plan 09/09/21 pt doing ok workup negative to date MRI pending ST eval performed dc planning Subjective Date/time seen: 09/09/21 15:40 Patient pleasant and cooperative but confused. She has no complaints at the time my interview Exam Narrative: HEENT: EOMI, sclerae nonicteric, pharyngeal mucosa pink and intact NECK: No JVD, trachea midline RESP: Diminished breath sounds throughout. CARDIO:S1/S2, regular, no murmur ABDOMEN: BS+, soft, nontender EXTREMITIES: No cyanosis, edema, or clubbing NEUROLOGIC: AO to self PSYCH: Confused. Cooperative Objective Data Vital Signs Vital Signs: Vital Signs - 24 hr 09/08/21 16:00 09/08/21 17:15 09/08/21 18:00 Temperature 97.6 F Pulse Rate 73 90 Respiratory Rate 20 Blood Pressure 124/64 Pulse Oximetry 98 98 09/08/21 20:00 09/08/21 20:32 09/08/21 20:40 Temperature Pulse Rate 84 82 88 Respiratory Rate 20 20 Blood Pressure Pulse Oximetry 09/08/21 22:00 09/09/21 00:00 09/09/21 01:58 Temperature 97.7 F Pulse Rate 90 92 84 Respiratory Rate 21 H 20 Blood Pressure 117/71 Pulse Oximetry 100 02/08/22 02:00 09/09/21 02:06 09/09/21 04:00 Temperature 97.0 F L Pulse Rate 84 84 83 Respiratory Rate 18 20 Blood Pressure 138/53 L Pulse Oximetry 96 09/09/21 06:00 09/09/21 08:04 09/09/21 09:14 Temperature 97.0 F L Pulse Rate 90 85 107 H Respiratory Rate 18 20 Blood Pressure 142/86 H Pulse Oximetry 96 09/09/21 09:23 09/09/21 10:00 09/09/21 12:01 Temperature 97.8 F Pulse Rate 99 89 101 H Respiratory Rate 20 20 Blood Pressure 137/77 Pulse Oximetry 96 09/09/21 14:00 09/09/21 15:22 09/09/21 15:28 Temperature 97.9 F Pulse Rate 99 88 97 Respiratory Rate 20 18 20 Blood Pressure 130/88 Pulse Oximetry 97 Intake/Output Intake/Output: Intake & Output 09/06/21 09/07/21 09/08/21 09/09/21 23:59 23:59 23:59 23:59 Intake Total 2150 520 1340 633 Output Total 200 Balance 0450 372 4196 633 Meds/Results Medications: Active Medications Generic Name Dose Route Start Last Admin Trade Name Freq PRN Reason Stop Dose Admin Acetaminophen 650 mg 09/06/21 22:15 Acetaminophen 325 Mg Tablet PO Q4H PRN Mild Pain (1-3) or Fever Albuterol 2.5 mg 09/07/21 20:00 09/09/21 15:20 Albuterol Sulfate Neb 2.5 Mg/0.5 Ml Inh INHALATION 2.5 mg Q6HRT DMITRI Administration Atorvastatin Calcium 20 mg 09/07/21 09:00 09/09/21 08:10 Atorvastatin 20 Mg Tablet PO 20 mg DAILY DMITRI Administration Citalopram Hydrobromide 10 mg 09/07/21 09:00 09/09/21 08:10 Citalopram Hydrobromide 10 Mg Tablet PO 10 mg DAILY DMITRI Administration Levothyroxine Sodium 50 mcg 09/07/21 07:45 09/09/21 06:22 Levothyroxine Sodium 50 Mcg Tablet PO 50 mcg DAILY@0630 DMITRI Administration Memantine 5 m
[2021-09-09] MEDS: FUROSEMIDE INJ 40 MG/4 ML VIAL IV PUSH (20:18)
[2021-09-10] VITALS (20 sets, daily range): BP systolic 104–151; BP diastolic 63–88; PULSE 69–112; RESP 16–22; TEMP 36.1–36.9; O2SAT 92–96
[2021-09-10] MEDS: LEVOTHYROXINE SODIUM 50 MCG TABLET PO (06:12)
--- NOTE | 2021-09-10 08:21 | PM.IMPN ---
Progress Note: A&P Assessment and Plan (1) Dementia: Qualifiers: Dementia behavioral disturbance: without behavioral disturbance Dementia type: unspecified type Qualified Code(s): F03.90 - Unspecified dementia without behavioral disturbance Code(s): F03.90 - Unspecified dementia without behavioral disturbance Status: Acute (2) Atrial fibrillation: Qualifiers: Atrial fibrillation type: unspecified Qualified Code(s): I48.91 - Unspecified atrial fibrillation Code(s): I48.91 - Unspecified atrial fibrillation Status: Acute (3) Altered mental status: Qualifiers: Altered mental status type: unspecified Qualified Code(s): R41.82 - Altered mental status, unspecified Code(s): R41.82 - Altered mental status, unspecified Status: Acute (4) Adult failure to thrive: Code(s): R62.7 - Adult failure to thrive Status: Acute (5) History of CVA (cerebrovascular accident): Code(s): Z86.73 - Personal history of transient ischemic attack (TIA), and cerebral infarction without residual deficits Status: Acute (6) Acute respiratory insufficiency: Code(s): R06.89 - Other abnormalities of breathing Status: Acute Additional Plan 09/09/21 pt doing ok workup negative to date MRI pending ST eval performed dc planning late entry addendum 09/09/21 called by RN pt w wheezing requiring 2L O2 acute resp insufficiency lasix IV 40mg x NOW then lasix 40mg IV daily CXR in am 09/10/21 pt has been weened from O2 still w audible wheezing cont lasix HR tachy w known afib BP elevated now Carvedilol restarted CXR pending Dispo anticipate dc to SNF in 24-48 hours after resp status improved and HR controlled Subjective Date/time seen: 09/10/21 08:21 Exam Narrative: HEENT: EOMI, sclerae nonicteric, pharyngeal mucosa pink and intact NECK: No JVD, trachea midline RESP: Diminished breath sounds throughout. CARDIO:S1/S2, IRR, no murmur ABDOMEN: BS+, soft, nontender EXTREMITIES: No cyanosis, edema, or clubbing NEUROLOGIC: AO to self PSYCH: Confused. Cooperative Objective Data Vital Signs Vital Signs: Vital Signs - 24 hr 09/09/21 09:14 09/09/21 09:23 09/09/21 10:00 Temperature 97.8 F Pulse Rate 107 H 99 89 Respiratory Rate 20 20 20 Blood Pressure 137/77 Pulse Oximetry 96 09/09/21 12:01 09/09/21 14:00 09/09/21 15:22 Temperature 97.9 F Pulse Rate 101 H 99 88 Respiratory Rate 20 18 Blood Pressure 130/88 Pulse Oximetry 97 09/09/21 15:28 09/09/21 16:04 09/09/21 18:00 Temperature 97.7 F Pulse Rate 97 105 H 89 Respiratory Rate 20 20 Blood Pressure 130/86 Pulse Oximetry 98 09/09/21 20:00 09/09/21 21:30 09/09/21 21:40 Temperature Pulse Rate 90 102 H 96 Respiratory Rate 20 20 20 Blood Pressure Pulse Oximetry 98 93 09/09/21 22:00 09/10/21 00:00 09/10/21 02:00 Temperature 97.5 F L 97.0 F L Pulse Rate 87 96 97 Respiratory Rate 18 16 Blood Pressure 130/82 151/83 H Pulse Oximetry 96 94 09/10/21 04:00 09/10/21 06:00 Temperature 97.3 F L Pulse Rate 100 104 H Respiratory Rate 16 Blood Pressure 141/88 H Pulse Oximetry 94 Intake/Output Intake/Output: Intake & Output 09/07/21 09/08/21 09/09/21 09/10/21 23:59 23:59 23:59 23:59 Intake Total 520 1340 1053 500 Output Total 250 Balance 520 1340 803 500 Meds/Results Medications: Active Medications Generic Name Dose Route Start Last Admin Trade Name Freq PRN Reason Stop Dose Admin Acetaminophen 650 mg 09/06/21 22:15 Acetaminophen 325 Mg Tablet PO Q4H PRN Mild Pain (1-3) or Fever Albuterol 2.5 mg 09/07/21 20:00 09/10/21 03:38 Albuterol Sulfate Neb 2.5 Mg/0.5 Ml Inh INHALATION Not Given Q6HRT DMITRI Atorvastatin Calcium 20 mg 09/07/21 09:00 09/09/21 08:10 Atorvastatin 20 Mg Tablet PO 20 mg DAILY DMITRI Administration Citalopram Hydrobromide 10 mg 09/07/21 09:00
[2021-09-10] MEDS: ALBUTEROL SULFATE NEB 2.5 MG/0.5 ML INH INHALATION ×3 (08:23→21:02)
[2021-09-10] MEDS: ATORVASTATIN 20 MG TABLET PO (09:07)
[2021-09-10] MEDS: CITALOPRAM HYDROBROMIDE 10 MG TABLET PO (09:07)
[2021-09-10] MEDS: MEMANTINE 5 MG TABLET PO ×2 (09:07→16:53)
[2021-09-10] MEDS: RIVAROXABAN 15 MG TABLET PO (09:07)
[2021-09-10] MEDS: carvediloL 3.125 MG TABLET PO ×2 (09:10→19:28)
[2021-09-10] MEDS: FUROSEMIDE INJ 40 MG/4 ML VIAL IV PUSH (09:57)
[2021-09-11] VITALS (14 sets, daily range): BP systolic 115–125; BP diastolic 59–100; PULSE 80–101; RESP 13–20; TEMP 36.1–36.6; O2SAT 93–96
[2021-09-11] MEDS: ALBUTEROL SULFATE NEB 2.5 MG/0.5 ML INH INHALATION ×2 (02:36→08:51)
[2021-09-11] MEDS: LEVOTHYROXINE SODIUM 50 MCG TABLET PO (05:30)
[2021-09-11] MEDS: ATORVASTATIN 20 MG TABLET PO (08:21)
[2021-09-11] MEDS: FUROSEMIDE INJ 40 MG/4 ML VIAL IV PUSH (08:21)
[2021-09-11] MEDS: RIVAROXABAN 15 MG TABLET PO (08:22)
[2021-09-11] MEDS: MEMANTINE 5 MG TABLET PO (08:22)
[2021-09-11] MEDS: CITALOPRAM HYDROBROMIDE 10 MG TABLET PO (08:22)
[2021-09-11] MEDS: carvediloL 3.125 MG TABLET PO (08:22)
--- NOTE | 2021-09-11 09:00 | PM.DS ---
DS: Admitting Diagnosis Discharge Date 09/11/21 Admitting Diagnosis (1) Altered mental status: Qualifiers: Altered mental status type: unspecified Qualified Code(s): R41.82 - Altered mental status, unspecified Code(s): R41.82 - Altered mental status, unspecified Status: Acute Assessment and Plan: Unclear etiology Meds reviewed CT head reviewed CT abdomen and pelvis reviewed Chest x-ray reviewed Nonfocal on physical exam My be some dehydration secondary to nausea and vomiting Patient also had episode of hypotension in the emergency room initially hypertensive on arrival Admit to regular medical floor Supportive care Up with assistance (2) Adult failure to thrive: Code(s): R62.7 - Adult failure to thrive Status: Acute Assessment and Plan: This could be due to disease progression PT OT Possible need for half-way placement (3) Dementia: Code(s): F03.90 - Unspecified dementia without behavioral disturbance Status: Acute Assessment and Plan: Continue Namenda (4) Atrial fibrillation: Code(s): I48.91 - Unspecified atrial fibrillation Status: Acute Assessment and Plan: Rate controlled and anticoagulated (5) CVA (cerebral vascular accident): Code(s): I63.9 - Cerebral infarction, unspecified Status: Acute Assessment and Plan: Chronic Continue statin DS: Discharge Diagnosis Discharge Diagnosis (1) Dementia: Qualifiers: Dementia behavioral disturbance: without behavioral disturbance Dementia type: unspecified type Qualified Code(s): F03.90 - Unspecified dementia without behavioral disturbance Code(s): F03.90 - Unspecified dementia without behavioral disturbance Status: Acute (2) Atrial fibrillation: Qualifiers: Atrial fibrillation type: unspecified Qualified Code(s): I48.91 - Unspecified atrial fibrillation Code(s): I48.91 - Unspecified atrial fibrillation Status: Acute (3) Altered mental status: Qualifiers: Altered mental status type: unspecified Qualified Code(s): R41.82 - Altered mental status, unspecified Code(s): R41.82 - Altered mental status, unspecified Status: Acute (4) Adult failure to thrive: Code(s): R62.7 - Adult failure to thrive Status: Acute (5) History of CVA (cerebrovascular accident): Code(s): Z86.73 - Personal history of transient ischemic attack (TIA), and cerebral infarction without residual deficits Status: Acute (6) Acute respiratory insufficiency: Code(s): R06.89 - Other abnormalities of breathing Status: Acute DS: Summary Hospital Course Reason for hospitalization: Altered mental status Hospital Course: 81-year-old female brought to the hospital with altered mental status noted to be more confused than usual dementia and with nausea and vomiting and hypersomnolence. Concern was raised by family for failure to thrive and possible inability to live independently. Pt received 2 L of fluid in the emergency department. Her chest x-rays CT abdomen pelvis and CT brain were all unremarkable. Urine did not show evidence for infection. She did have mild pancytopenia. MRI brain was negative for acute CVA. Speech therapy performed swallow evaluation which patient successfully passed. Hospital course was complicated by acute onset of wheezing acute hypoxemic respiratory failure which responded promptly to administration of IV Lasix 40 mg daily. Patient with known atrial fibrillation was placed back on her carvedilol and subsequently discharged to [facility] facility in stable condition with indications to follow up with Cardiology, Neurology, and her PCP. Time Spent with Patient Time attestation: Total time spent providing and/or coordinating discharge services: Time spent: Greater than 30 minutes Exam Narrative: GEN:Confused. Cooperative pleasant HEENT: Normocephalic atraumatic,
[2021-09-11 09:43] LABS: EDCOVIDSCREEN Negative (Negative)
[2021-09-11] MEDS: MECLIZINE HCL 25 MG TABLET PO (12:26)
--- NOTE | 2021-09-11 15:04 | PC.NURSE ---
On 09/11/21, the student, [John Oates], provided care and completed [facility] documentation on this patient. I have reviewed the student's documentation and agree with the findings.
== END 2021-09-11 14:17 | DRG 884 ==
LOC: ANHED 20:27 → ANH2MED 23:54
PROVIDERS: Emergency Medicine; Internal Medicine; Nurse Practitioner Adult Health; Admitting Provider Internal Medicine; Emergency Provider Emergency Medicine; PCP Family Medicine; Visit Provider Hospitalist
DX: F03.90 Unspecified dementia, unspecified severity, without behavioral disturbance, psychotic disturbance, mood disturbance, and anxiety (principal); J96.01 Acute respiratory failure with hypoxia; D61.818 Other pancytopenia; R62.7 Adult failure to thrive; Z20.822 Contact with and (suspected) exposure to COVID-19; I48.91 Unspecified atrial fibrillation; Z79.899 Other long term (current) drug therapy; R11.2 Nausea with vomiting, unspecified; Z79.01 Long term (current) use of anticoagulants; Z86.73 Personal history of transient ischemic attack (TIA), and cerebral infarction without residual deficits; E86.0 Dehydration
CPT/HCPCS: 36415; 36600; 51701; 70450; 70551; 71045; 74177; 80048; 80053; 80307; 81001; 82607; 82746; 82805; 83036; 83540; 83550; 83605; 83690; 83735; 84100; 84443; 85025; 85027; 85055; 86140; 87426; 92611; 93005; 94640; 96361; 96365; 96375; 96376; 97110; 97116; 97161; 97165; 97530; 97535; 99285; A9270; C1751; C9803; G0378; J0131; J1940; J2405; J2930; J7030; Q9967; U0003; U0005